=== PATIENT | female | born 1970 | race Caucasian/White ===

== ENCOUNTER → 2018-06-02 | Outpatient (CLI) | payer BC ==
--- NOTE | 2018-06-04 12:51 | MAM ---
EXAM DESCRIPTION: 3D Screening BILATERAL : Digital Mammography. CLINICAL HISTORY: 47 years Female SCREENING . No complaints. Mother with ovarian cancer. Remote family history of breast and ovarian cancer. Childbirth status unknown. Premenopausal. No HRT. COMPARISON: 2-D digital screening bilateral study 10/11/2014. No prior reports available. TECHNIQUE: Bilateral CC and MLO projection full-field images, 3-D tomosynthesis digital mammographic technique. CAD not utilized. FINDINGS: The breast parenchymal density pattern is: Heterogeneously dense breast tissue, which may obscure small masses. No skin thickening or nipple retraction. No new focal, stellate mass or density, focal asymmetry , and no suspicious microcalcifications bilaterally. Stable mammograms compared to prior study, taking into account differences in mammographic technique. IMPRESSION: BI-RADS CATEGORY: 1 - NEGATIVE FOLLOW UP: Routine digital bilateral screening, one year interval from May 2018. Written communication explaining the findings and follow-up, will be mailed to the patient and referring health care provider. According to the [employer], yearly mammograms are recommended starting at age 40 and continuing as long as a woman is in good health. Any breast change noted on a breast self-exam should be reported promptly to the patient's healthcare provider. Breast MRI is recommended for women with an approximately 20-25% or greater lifetime risk of breast cancer, including women with a strong family history of breast or ovarian cancer and women who have been treated for Hodgkin's disease. A negative mammographic report should not delay tissue diagnosis in patients with significant clinical history or physical findings. Extremely dense breast tissue limits the sensitivity of digital mammography. Electronically signed by: Triston Perez MD 06/04/2018 12:49 PM CDT
== END ==
LOC: MAMMO 09:00
PROVIDERS: ATTEND Obstetrics & Gynecology
DX: Z12.31 Encounter for screening mammogram for malignant neoplasm of breast (principal)

== ENCOUNTER → 2019-06-10 | Outpatient (CLI) | payer BC ==
--- NOTE | 2019-06-11 10:41 | MAM ---
EXAM DESCRIPTION: 3D Screening BILATERAL : Digital Mammography. CLINICAL HISTORY: 48 years Female Screening . No complaints. No personal history of breast cancer. Mother with ovarian cancer. Remote family history of breast and ovarian cancer. Childbirth. Perimenopausal. No HRT. Lifetime risk of developing breast cancer (Tyrer-Cuzick model)(%): 6.5. COMPARISON: Bilateral screening digital breast tomosynthesis 06/12/2018. TECHNIQUE: Bilateral CC and MLO projection full-field images, digital tomosynthesis mammographic technique. Bilateral digital 2-D full-field MLO images. CAD not available for tomosynthesis or 2-D images. FINDINGS: The breast parenchymal density pattern is: Heterogeneously dense breast tissue, which may obscure small masses. No skin thickening or nipple retraction. Focal asymmetry posterior to the right nipple is slightly more prominent since the prior study, best seen on the MLO image, 2.5 cm behind the nipple. Focal asymmetry best seen on the CC tomosynthesis image slightly below the nipple level laterally in the middle third, 4.6 cm from the nipple. Slightly larger since the prior study. No new focal, stellate mass or density, focal asymmetry , and no suspicious microcalcifications left breast. IMPRESSION: BI-RADS CATEGORY: 0 - INCOMPLETE- Need additional imaging evaluation. FOLLOW-UP: Recall for additional imaging: Full-field right breast LM tomosynthesis and targeted right breast ultrasound of the regions of interest.. Written communication concerning the IMPRESSION and Follow-up, will be mailed to the patient and referring health care provider. Electronically signed by: Triston Perez MD 06/11/2019 10:39 AM CDT
== END ==
LOC: MAMMO 09:00
PROVIDERS: ATTEND Obstetrics & Gynecology
DX: Z12.31 Encounter for screening mammogram for malignant neoplasm of breast (principal)

== ENCOUNTER → 2019-06-24 | Outpatient (CLI) | payer BC ==
--- NOTE | 2019-06-24 20:43 | US ---
EXAM DESCRIPTION: 3D Diagnostic, Right (accession [id number]), Breast,Right (accession [id number]): Ultrasound CLINICAL HISTORY: 49 yearsFemaleABNORMAL MAMMO . Focal asymmetries right breast COMPARISON: Bilateral screening digital breast tomosynthesis 06/10/2019. TECHNIQUE: Right breast LM projection full-field images, digital mammographic tomosynthesis technique. Right breast 2-D digital full-field LM image. CAD not available . Transcutaneous scanning of the right breast utilizing hylton-scale and Doppler modes. Scanning performed by the sales forecast analyst with observation by Dr. Perez. FINDINGS: The breast parenchymal density pattern is: Heterogeneously dense breast tissue, which may obscure small masses. No skin thickening or nipple retraction focal asymmetry in the anterior third of the retroareolar right breast is not seen on these images. Faint asymmetry is seen at the 8:00-11:00 position 5 cm from the nipple. No suspicious microcalcifications. Ultrasound: Scanning of the right breast 8:00 to 12:00 from the nipple to 4 cm posterior. Prominent ducts are seen posterior to the nipple. No dominant solid mass or distinct cyst. No parenchymal edema or large calcifications. IMPRESSION: Benign exam. BIRAD CATEGORY: 2 BENIGN FINDINGS. RECOMMENDATIONS: FOLLOW UP: Return to routine digital bilateral mammographic screening, one year interval from May 2019 Written communication explaining the IMPRESSION and follow-up, will be mailed to the patient and referring health care provider. The FINDINGS and the FOLLOW-UP plan were reviewed in person with the patient after the examination. According to the [employer], yearly mammograms are recommended starting at age 40 and continuing as long as a woman is in good health. Any breast change noted on a breast self-exam should be reported promptly to the patient's healthcare provider. Breast MRI is recommended for women with an approximately 20-25% or greater lifetime risk of breast cancer, including women with a strong family history of breast or ovarian cancer and women who have been treated for Hodgkin's disease. A negative mammographic report should not delay tissue diagnosis in patients with significant clinical history or physical findings. Extremely dense breast tissue limits the sensitivity of digital mammography. Written communication explaining the IMPRESSION and follow-up, will be mailed to the patient and referring health care provider. The FINDINGS and the FOLLOW-UP plan were reviewed in person with the patient after the examination. No suspicious or significant clinical findings. The region of interest should be followed on clinical grounds, and if noted to change in size or character, a targeted/directed follow-up on US examination may be performed. Electronically signed by: Triston Perez MD 06/24/2019 8:42 PM CDT
== END ==
LOC: MAMMO 09:00
PROVIDERS: ATTEND Obstetrics & Gynecology
DX: R92.8 Other abnormal and inconclusive findings on diagnostic imaging of breast (principal)
CPT/HCPCS: 76641; 77065; G0279

== ENCOUNTER → 2020-07-05 | Outpatient (CLI) | payer BC ==
--- NOTE | 2020-07-07 19:46 | MAM ---
EXAM DESCRIPTION: 3D Screening BILATERAL : Digital Mammography. CLINICAL HISTORY: 50 years Female ANNUAL SCREENING . No complaints. Mother with ovarian cancer. Remote family history of breast cancer. Menarche age 12. Childbirth age 17. Menopause age 49. No HRT. Lifetime risk of developing breast cancer (Tyrer-Cuzick model)(%): 5.8. COMPARISON: Bilateral screening digital breast tomosynthesis May 2019 and May 2018.. TECHNIQUE: Bilateral CC and MLO projection full-field images, digital tomosynthesis mammographic technique. Bilateral digital 2-D full-field MLO images. CAD available for 2-D images. FINDINGS: The breast parenchymal density pattern is: Heterogeneously dense breast tissue, which may obscure small masses. No skin thickening or nipple retraction. No new focal, stellate mass or density, focal asymmetry , and no suspicious microcalcifications bilaterally. Stable mammograms compared to prior study. IMPRESSION: No suspicious or significant imaging findings. BI-RADS CATEGORY: 1 - NEGATIVE RECOMMENDATIONS: FOLLOW UP: Routine digital bilateral screening, one year interval from June 2020. Written communication explaining the findings and follow-up, will be mailed to the patient and referring health care provider. According to the [employer], yearly mammograms are recommended starting at age 40 and continuing as long as a woman is in good health. Any breast change noted on a breast self-exam should be reported promptly to the patient's healthcare provider. Breast MRI is recommended for women with an approximately 20-25% or greater lifetime risk of breast cancer, including women with a strong family history of breast or ovarian cancer and women who have been treated for Hodgkin's disease. A negative mammographic report should not delay tissue diagnosis in patients with significant clinical history or physical findings. Extremely dense breast tissue limits the sensitivity of digital mammography. Electronically signed by: Triston Perez MD 07/07/2020 7:44 PM CDT
== END ==
LOC: MAMMO 14:28
PROVIDERS: ATTEND Obstetrics & Gynecology
DX: Z12.31 Encounter for screening mammogram for malignant neoplasm of breast (principal)